=== PATIENT | female | born 1975 | race Two or more races ===

== ENCOUNTER 2023-07-28 13:51 | Emergency (ER) | payer BC ==
[~2023-07-28] VITALS: Ht 160 cm; Wt 99.8 kg
[2023-07-28 15:48] LABS: Influenza A, PCR NEGATIVE (NEGATIVE); Influenza B, PCR NEGATIVE (NEGATIVE); Resp Syncytial Virus, PCR NEGATIVE (NEGATIVE); SARS-Cov-2 (COVID-19) PCR, MMC NEGATIVE (NEGATIVE)
[2023-07-28 16:12] VITALS: BP 182/97
[2023-07-28] MEDS ORDERED: AZIT250 PO (16:16)
[2023-07-28] MEDS ORDERED: BENZ100A PO (16:16)
== END 2023-07-28 16:24 | disposition home or self-care (01) ==
LOC: ER 13:51
PROVIDERS: Physician Assistant
DX: J18.9 Pneumonia, unspecified organism (principal); Z20.822 Contact with and (suspected) exposure to COVID-19; F17.210 Nicotine dependence, cigarettes, uncomplicated; Z88.6 Allergy status to analgesic agent
CPT/HCPCS: 0241U; 71046; 96361; 96374-59; 96375; 99283-25